=== PATIENT | female | born 1975 | race Caucasian/White ===

== ENCOUNTER 2017-12-10 10:03 | Emergency (ER) | payer SELFPAY ==
[2017-12-10 11:06] LABS: BASO % 0.1 % (0-6); EOS % 1.6 % (0-6); GRAN % 61.6 % (47-80); HEMATOCRIT 35.8 % (35.0-47.0); HEMOGLOBIN 11.3 gm/dl (11.6-16.0); LYMPH % 29.8 % (16-45); MEAN CELL VOLUME 100.8 fl (81-97); MEAN CORPUSCULAR HEMOGLOBIN 31.8 pg (27-33); MEAN CORPUSCULAR HGB CONC 31.6 g/dl (32-36); MEAN PLATELET VOLUME 10.9 fl (7.4-10.4); MONO % 6.9 % (0-9); PLATELET COUNT 398 K/uL (130-400); RED BLOOD COUNT 3.55 M/uL (3.80-5.40); RED CELL DISTRIBUTION WIDTH 14.9 % (11.5-14.5); WHITE BLOOD COUNT W/O DIFF 9.9 K/uL (4.2-12.2)
[2017-12-10] MEDS: KETOROLAC 30 MG/ML VIAL IVP ONE (11:23)
--- NOTE | 2017-12-10 12:04 | Emergency Department Record ---
History of Present Illness - General Chief Complaint: Chest Pain Stated Complaint: CHEST PAIN Time Seen by Provider: 12/10/17 10:16 Mode of Arrival: Ambulatory - History of Present Illness Initial Comments: Here with left sided chest pain and seen at [facility] yesterday and had a neg CTA of chest and diagnosised with bronchitis and given z leonel and naprrosyn bid. Patient was concerned about the pain and came to the ed. Patient has a hoarse voice and mild cough in the ED and she has had asthma in the past and cutting back on smoking cigarrettes. Onset/Timin -: Days(s) Pain Location: Substernal, Left chest Pain Radiation: Back Severity: Moderate Severity scale (1-10): 10 Quality: Aching Consistency: Constant, Intermittent Improves With: Movement - Related Data Home Medications Medication Instructions Recorded Confirmed Last Taken Albuterol Sulfate [Ventolin Hfa] 1 - 2 puff IH .EVERY 4-6 HOURS PRN 12/10/1704/19 Unknown Azithromycin [Zithromax] 250 mg PO DAILY 12/10/17 12/10/17 1 Day Ago ~12/09/17 Naproxen 500 mg PO BID 12/10/17 12/10/17 1 Day Ago ~12/09/17 Previous Rx's Medication Instructions Recorded Tizanidine HCl [Zanaflex] 4 mg PO Q8HR #14 tablet 12/10/17 Allergies Allergy/AdvReac Type Severity Reaction Status Date / Time No Known Drug Allergies Allergy Verified 12/10/17 10:18 Travel Screening - Travel/Exposure Within Last 30 Days Have you traveled within the last 30 days?: No - Travel/Exposure Within Last Year Have you traveled outside the [place] in the last year?: No - Additonal Travel Details Have you been exposed to anyone with a communicable illness?: No - Travel Symptoms Symptom Screening: None Review of Systems Reviewed: No additional complaints except as noted below Constitutional: Reports: As per HPI. Denies: Chills, Fever, Malaise, Night sweats, Weakness, Weight change Eyes: Reports: As per HPI. Denies: Eye discharge, Eye pain, Photophobia, Vision change ENT: Reports: As per HPI. Denies: Congestion, Dental pain, Ear pain, Epistaxis , Hearing loss, Throat pain Respiratory: Reports: As per HPI. Denies: Cough, Dyspnea, Hemoptysis, Stridor, Wheezes Cardiovascular: Reports: As per HPI, Chest pain. Denies: Arrhythmia, Dyspnea on exertion, Edema, Murmurs, Orthopnea, Palpitations, Paroxysmal nocturnal dyspnea, Rheumatic Fever, Syncope Endocrine: Reports: As per HPI. Denies: Fatigue, Heat or cold intolerance, Polydipsia, Polyuria Gastrointestinal: Reports: As per HPI. Denies: Abdominal pain, Constipation, Diarrhea, Hematemesis, Hematochezia, Melena, Nausea, Vomiting Genitourinary: Reports: As per HPI. Denies: Abnormal menses, Discharge, Dyspareunia, Dysuria, Frequency, Hematuria, Incontinence, Retention, Urgency Musculoskeletal: Reports: As per HPI. Denies: Arthralgia, Back pain, Gout, Joint swelling, Myalgia, Neck pain Skin: Reports: As per HPI. Denies: Bruising, Change in color, Change in hair/ nails, Lesions, Pruritus, Rash Neurological: Reports: As per HPI. Denies: Abnormal gait, Confusion, Headache, Numbness, Paresthesias, Seizure, Tingling, Tremors, Vertigo, Weakness Psychiatric: Reports: As per HPI. Denies: Anxiety, Auditory hallucinations, Depression, Homicidal thoughts, Suicidal thoughts, Visual hallucinations Hematological/Lymphatic: Reports: As per HPI. Denies: Anemia, Blood Clots, Easy bleeding, Easy bruising, Swollen glands Past Medical History - SOCIAL HISTORY Smoking Status: Current every day smoker Alcohol Use: Occasional Drug Use: None - RESPIRATORY Hx Asthma: Yes Hx Bronchitis: Yes (recent diagnosis) - CARDIOVASCULAR Hx Cardio Disorders: No - NEURO Hx Neuro Disorders: No - GI Hx Reflux: Yes - Hx Genitourinary Disorders: No - ENDOCRINE Hx Endocrine Disorders: No Hx Diabetes: No Hx Thyroid Disease: No - MUSCULOSKELETAL Hx Arthritis: Yes - PSYCH Hx Anxiety: Yes Hx Depression: Yes - HEMATOLOGY/ONCOLOGY Hx Anemia: No Hx Blood Disorders: No Hx Bruising: No Family Medical History Any Significant Family History?: Yes Physical Exam - General General Appearance: Alert, Oriented x3, Cooperative, No acute distress - Head Head exam: Normal inspection - Eye Eye exam: Normal appearance, PERRL Pupils: Normal accommodation - ENT ENT exam: Normal exam, Mucous membranes moist, Normal external ear exam, Normal orophraynx, TM's normal bilaterally Ear exam: Normal external inspection. negative: External canal tenderness Nasal Exam: Normal inspection. negative: Discharge, Sinus tenderness Mouth exam: Normal external inspection, Tongue normal Teeth exam: Normal inspection. negative: Dental caries Throat exam: Normal inspection. negative: Tonsillar erythema, Tonsillar exudate - Neck Neck exam: Normal inspection, Full ROM. negative: Tenderness - Respiratory Respiratory exam: Normal lung sounds bilaterally. negative: Respiratory distress - Cardiovascular Cardiovascular Exam: Regular rate, Normal rhythm, Normal heart sounds - GI/Abdominal GI/Abdominal exam: Soft, Normal bowel sounds. negative: Tenderness - Rectal Rectal exam: Deferred - exam: Deferred - Extremities Extremities exam: Normal inspection, Full ROM, Normal capillary refill. negative: Tenderness - Back Back exam: Reports: Normal inspection, Full ROM. Denies: Muscle spasm, Rash noted, Tenderness - Neurological Neurological exam: Alert, Normal gait, Oriented X3, Reflexes normal - Psychiatric Psychiatric exam: Normal affect, Normal mood - Skin Skin exam: Dry, Intact, Normal color, Warm Course Vital Signs 12/10/17 12/10/17 12/10/17 10:10 10:48 11:51 Temperature 98.1 F Pulse Rate 72 Pulse Rate [ 73 66 Pulse Ox Probe] Respiratory 16 16 16 Rate Blood Pressure 127/75 Blood Pressure 114/74 100/72 [Left Arm] Pulse Ox 97 97 95 Medical Decision Making - Lab Data Result diagrams: 12/10/17 10:15 Lab Results 12/10/17 Range/Units 10:15 WBC 9.9 (4.2-12.2) K/uL RBC 3.55 L (3.80-5.40) M/uL Hgb 11.3 L (11.6-16.0) gm/dl Hct 35.8 (35.0-47.0) % MCV 100.8 H (81-97) fl MCH 31.8 (27-33) pg MCHC 31.6 L (32-36) g/dl RDW 14.9 H (11.5-14.5) % Plt Count 398 (130-400) K/uL MPV 10.9 H (7.4-10.4) fl Gran % 61.6 (47-80) % Lymphocytes % 29.8 (16-45) % Monocytes % 6.9 (0-9) % Eosinophils % 1.6 (0-6) % Basophils % 0.1 (0-6) % Disposition Clinical Impression: Bronchitis, Chest wall pain Disposition: Home, Self-Care Condition: (1) Good Instructions: Chest Wall Pain (ED), Acute Bronchitis (ED) Additional Instructions: follow up with family continue azithromycin and naprosyn start zanaflex 4 mg three times a day Prescriptions: Tizanidine HCl [Zanaflex] 4 mg PO Q8HR #14 tablet Time of Disposition: 12:06 Quality - Quality Measures Quality Measures: N/A - Blood Pressure Screening Does Patient Have Any of the Following: No Blood Pressure Classification: Pre-Hypertensive BP Reading Systolic Measurement: 127 Diastolic Measurement: 75 Screening for High Blood Pressure: < Pre-Hypertensive BP, F/U Documented > [ G8950] Pre-Hypertensive Follow-up Interventions: Referral to alternative/primary care provider.
--- NOTE | 2017-12-11 14:35 | RADIOLOGY REPORT ---
EXAM: CHEST, TWO VIEWS HISTORY: CHEST PAIN. TECHNIQUE: Frontal and lateral views of the chest were obtained. Comparison: None. FINDINGS: The heart size is normal. The lungs are clear. No pneumothorax. IMPRESSION: NEGATIVE CHEST EXAMINATION. JOB NUMBER: [id number] MTDD
== END 2017-12-10 12:18 | disposition home or self-care (01) ==
LOC: ER 10:03
DX: J20.9 Acute bronchitis, unspecified (principal); R07.89 Other chest pain; F17.210 Nicotine dependence, cigarettes, uncomplicated
CPT/HCPCS: 71046; 85025; 93005; 93010; 96374; 99284; J1885

== ENCOUNTER 2019-02-17 14:26 | Emergency (ER) | payer MEDICAID ==
[2019-02-17] MEDS ORDERED: LIDOCAINE UROJECT 10 ML APPL MM ONE (15:29)
--- NOTE | 2019-02-17 15:31 | Emergency Department Record ---
History of Present Illness - General Chief complaint: Female Urogenital Problem Stated complaint: FEMALE ISSUES Time Seen by Provider: 02/17/19 15:23 Source: Patient Mode of Arrival: Ambulatory Limitations: No limitations - History of Present Illness Initial comments: 43 yo female presents with an irritating vaginal discharge since Monday. No history of STD or herpes. NO exposures. She was recently diagnosed with DM and is concerned this is a yeast infection. No fever. No back or abdominal pain. The area is sensitive to touch. MD Complaint: Vaginal discharge -: Days(s) Location: Perineum Radiation: Non-radiating Severity: Moderate Quality: Other (itches, irritating) Consistency: Constant Improves with: None Worsens with: None Patient : No - Related Data Home Medications Medication Instructions Recorded Confirmed Last Taken Cephalexin 500 mg PO BID 02/17/19 02/17/19 02/17/19 Metformin HCl 500 mg PO BID 02/17/19 02/17/19 02/17/19 Omeprazole 40 mg PO DAILY 02/17/19 02/17/19 02/17/19 Previous Rx's Medication Instructions Recorded Clotrimazole [Clotrimazole 3] 22.2 gm VG DAILY #1 cream.appl 02/17/19 Allergies Allergy/AdvReac Type Severity Reaction Status Date / Time No Known Drug Allergies Allergy Verified 02/17/19 15:32 Review of Systems Constitutional: Denies: Chills, Fever, Malaise, Weakness Eyes: Denies: Eye discharge ENT: Denies: Congestion, Throat pain Respiratory: Denies: Cough Cardiovascular: Denies: Chest pain, Syncope Endocrine: Denies: Polydipsia, Polyuria Gastrointestinal: Denies: Diarrhea, Melena, Nausea, Vomiting Genitourinary: Reports: As per HPI, Discharge. Denies: Dysuria, Frequency, Urgency Musculoskeletal: Denies: Arthralgia, Back pain Skin: Denies: Bruising, Change in color, Rash Neurological: Denies: Numbness, Weakness Psychiatric: Denies: Anxiety Hematological/Lymphatic: Denies: Easy bleeding, Easy bruising Past Medical History - SOCIAL HISTORY Smoking Status: Current every day smoker Drug Use: None - RESPIRATORY Hx Asthma: Yes Hx Bronchitis: Yes (recent diagnosis) - CARDIOVASCULAR Hx Cardio Disorders: No - NEURO Hx Neuro Disorders: No - GI Hx Reflux: Yes - Hx Genitourinary Disorders: No - ENDOCRINE Hx Endocrine Disorders: No Hx Diabetes: No Hx Thyroid Disease: No - MUSCULOSKELETAL Hx Arthritis: Yes - PSYCH Hx Anxiety: Yes Hx Depression: Yes - HEMATOLOGY/ONCOLOGY Hx Anemia: No Hx Blood Disorders: No Hx Bruising: No Physical Exam - General General Appearance: Alert, Oriented x3, Cooperative, No acute distress Limitations: No limitations - Head Head exam: Atraumatic, Normal inspection - Eye Eye exam: Normal appearance - ENT ENT exam: Normal exam Ear exam: Normal external inspection Nasal Exam: Normal inspection Mouth exam: Normal external inspection - Cardiovascular Cardiovascular Exam: Regular rate, Normal rhythm, Normal heart sounds - GI/Abdominal GI/Abdominal exam: Soft. negative: Tenderness - Rectal Rectal exam: Deferred - exam: Vaginal discharge (white, thick). negative: Abnormal external exam, Adnexal mass (L), Adnexal mass (R), Adnexal tenderness (L), Adnexal tenderness (R), Cervical discharge, cervical motion tenderness - Extremities Extremities exam: negative: Pedal edema - Back Back exam: Denies: CVA tenderness (R), CVA tenderness (L) - Neurological Neurological exam: Alert, Oriented X3 - Psychiatric Psychiatric exam: Normal affect, Normal mood. negative: Agitated, Anxious - Skin Skin exam: Dry, Intact, Normal color, Warm Course - Reevaluation(s) Reevaluation #1: Clinically the examination is consistent with gurvinder with thicker clumped DC I do recommend treating She has close follow up with her PCP and she states they were planning to refer her to a [facility] 02/17/19 Disposition Disposition: Discharge Clinical Impression: Vaginitis Qualifiers: Chronicity: acute Qualified Code(s): N76.0 - Acute vaginitis Disposition: Home, Self-Care Condition: (1) Good Instructions: Vaginitis (ED) Additional Instructions: Call your doctor for the next available follow up appointment Review this ER visit and the tests performed with your family doctor Return to the ER for a recheck if worse, any new concerns or questions Take the prescriptions provided as directed Prescriptions: Clotrimazole [Clotrimazole 3] 22.2 gm VG DAILY #1 cream.appl Forms: Patient Portal Access Time of Disposition: 16:15 Quality - Quality Measures Quality Measures: N/A - Blood Pressure Screening Does Patient Have Any of the Following: No Blood Pressure Classification: Hypertensive Reading Systolic Measurement: 124 Diastolic Measurement: 90 Screening for High Blood Pressure: < Pre-Hypertensive BP, F/U Documented > [G8950] Pre-Hypertensive Follow-up Interventions: Referral to alternative/primary care provider.
[2019-02-17 16:06] LABS: URINE APPEARANCE CLEAR; URINE BILIRUBIN NEGATIVE (NEGATIVE); URINE BLOOD NEGATIVE (NEGATIVE); URINE COLOR YELLOW; URINE KETONE 15 mg/dL (NEGATIVE); URINE LEUKOCYTE ESTERASE NEGATIVE (NEGATIVE); URINE NITRITE NEGATIVE (NEGATIVE); URINE PROTEIN NEGATIVE (NEGATIVE); URINE UROBILINOGEN 0.2 E.U./dL (0.20 - 1.00)
[2019-02-17 16:09] LABS: URINE GLUCOSE (UA) >=1000 mg/dL (NEGATIVE)
[2019-02-19 14:50] LABS: GC SPECIMEN TYPE Vaginal
== END 2019-02-17 16:48 | disposition home or self-care (01) ==
LOC: ER 14:26
DX: N76.0 Acute vaginitis (principal); E11.9 Type 2 diabetes mellitus without complications; F17.210 Nicotine dependence, cigarettes, uncomplicated
CPT/HCPCS: 81003; 81025; 87210; 99284